=== PATIENT | female | born 1980 | race Caucasian/White ===

== ENCOUNTER 2019-12-20 17:06 | Emergency (ER) | payer BC ==
[~2019-12-20] VITALS: Ht 162.6 cm; Wt 62.6 kg
--- NOTE | 2019-12-20 17:52 | NUR ---
ED Nurse Note: Pt ambulated into Ed frrom home [place] lower right abdominal pain x 1 week. Pt states she noticed the pain when she woke up one week ago. Pt states PCP suggested she visit ED for US and labwork. VSS no s/s of distress noted. Pain 5/10. Awaiting ERMD at bedside
[2019-12-20 18:01] VITALS: BP 117/71
--- NOTE | 2019-12-20 18:20 | NUR ---
ED Nurse Note: ERMD at bedside
--- NOTE | 2019-12-20 18:34 | NUR ---
ED Nurse Note: all blood work drawn and sent to lab
[2019-12-20 18:51] LABS: BASOPHILS % (AUTO) 0.9 % (0.0-2.0); EOSINOPHILS % (AUTO) 1.1 % (0.0-3.0); HEMATOCRIT 38.8 % (37.0-47.0); HEMOGLOBIN 13.6 G/DL (12.0-16.0); LYMPHOCYTES % (AUTO) 24.9 % (20.0-45.0); MEAN CORPUSCULAR VOLUME 88 FL (80-99); MONOCYTES % (AUTO) 6.2 % (1.0-10.0); PLATELET COUNT 310 K/UL (150-450); RED CELL DISTRIBUTION WIDTH 10.9 % (11.6-14.8); WHITE BLOOD COUNT 8.7 K/UL (4.8-10.8)
[2019-12-20 18:52] LABS: APPEARANCE,URINE CLEAR; BILIRUBIN, URINE NEGATIVE (NEGATIVE); COLOR,URINE PALE YELLOW; GLUCOSE, URINE (UA) NEGATIVE (NEGATIVE); KETONES,URINE NEGATIVE (NEGATIVE); LEUKOCYTE ESTERASE ,URINE NEGATIVE (NEGATIVE); NITRITE,URINE NEGATIVE (NEGATIVE); PH,URINE 7 (4.5-8.0); PROTEIN,URINE NEGATIVE (NEGATIVE); UROBILINOGEN,URINE NORMAL MG/DL (0.0-1.0)
[2019-12-20] MEDS ORDERED: Omnipaque-300 100ml vial INJ PRN (19:00)
[2019-12-20 19:03] LABS: ANION GAP 14 mmol/L (5-15); BLOOD UREA NITROGEN 17 mg/dL (7-18); CALCIUM 9.6 MG/DL (8.5-10.1); CARBON DIOXIDE 24 MMOL/L (21-32); CHLORIDE 101 MMOL/L (98-107); CREATININE 0.8 MG/DL (0.55-1.30); POTASSIUM 3.7 MMOL/L (3.5-5.1); SODIUM 139 MMOL/L (136-145)
[2019-12-20 19:07] LABS: ALANINE AMINOTRANSFERASE 25 U/L (12-78); ALBUMIN 4.6 G/DL (3.4-5.0); ALBUMIN/GLOBULIN RATIO 1.2 (1.0-2.7); ALKALINE PHOSPHATASE 54 U/L (46-116); ASPARTATE AMINO TRANSFERASE 14 U/L (15-37); BILIRUBIN,TOTAL 0.3 MG/DL (0.2-1.0)
--- NOTE | 2019-12-20 19:17 | NUR ---
ED Nurse Note: pt being taken to ct in stable condition. VSS, no s/s of distress noted.
--- NOTE | 2019-12-20 19:34 | NUR ---
ED Nurse Note: Pt returned from CT in stable condition. no s/s of distress noted. VSS.
--- NOTE | 2019-12-20 19:53 | NUR ---
ED Nurse Note: ERMD at bedside
[2019-12-20 20:00] VITALS: BP 119/73
--- NOTE | 2019-12-20 20:12 | Diagnostic Imaging Report ---
Clinical Indication: Right lower abdominal pain for one week Technique: No oral contrast utilized, per emergency room physician request IV administration nonionic contrast. Venous phase spiral acquisition obtained through the abdomen and pelvis. Multiplanar reconstructions were generated. Total dose length product 250 mGycm. CTDIvol(s) 4 mGy. Dose reduction achieved using automated exposure control Comparison: none Findings: There is trace free pelvic cul-de-sac fluid. The appendix is normal. No small bowel distention. No free or loculated intraperitoneal gas. The distal esophagus, stomach, duodenum are unremarkable. The liver, gallbladder, bile ducts, pancreas, spleen, adrenals are all unremarkable. The right kidney demonstrates a punctate upper pole 2 mm calculus. The left kidney demonstrates a questionable punctate lower pole calculus. No ureteral calculi, hydronephrosis, or hydroureter. No pelvic mass or adenopathy there is evidence of a collapsed follicle in the left ovary. No retroperitoneal or mesenteric mass or adenopathy. The included lung bases are clear. The bones are unremarkable. Impression: No acute abnormality. 2 mm nonobstructing right upper pole calculus. Free pelvic fluid, presumably physiologic This agrees with the preliminary interpretation provided overnight by [facility]. The CT scanner at [facility] is accredited by the [employer] and the scans are performed using protocols designed to limit radiation exposure to as low as reasonably achievable to attain images of sufficient resolution adequate for diagnostic evaluation.
--- NOTE | 2019-12-20 20:27 | Emergency Room Report ---
History of Present Illness General Chief Complaint: Abdominal Pain Source: Patient Present Illness HPI Patient states that she has had lower abdominal pain that has migrated over the past week. She states that at one point it was periumbilical and now it is mostly in her right lower quadrant. She denies dysuria or hematuria. She denies fever or chills. She denies nausea or vomiting. She has had a normal appetite. She was seen by her primary care physician who was concerned she may have appendicitis and that primary care physician sent her here to the emergency department. She denies cough or congestion. She denies chest pain or shortness of breath. She denies weakness. She denies tingling or numbness. She has no other complaints. COVID-19 risk:Travel to affect: No Has patient experienced sims: No Allergies: Coded Allergies: PENICILLINS (Verified Allergy, Mild, stomach pain diarrhea, 12/20/19) Patient History Past Medical History: none Past Surgical History: none Social History: Denies: smoking, alcohol use, drug use Last Menstrual Period: 11/29/2019 Now: No : 2 Para: 2 Reviewed Nursing Documentation: PMH: Agreed; PSxH: Agreed Nursing Documentation-PMH Past Medical History: No Stated History Review of Systems All Other Systems: negative except mentioned in HPI Physical Exam Vital Signs Date Time Temp Pulse Resp B/P (MAP) Pulse Ox O2 Delivery O2 Flow Rate FiO2 12/20/19 17:52 98.4 78 16 117/71 (86) 98 Room Air Sp02 EP Interpretation: reviewed, normal General Appearance: no apparent distress, alert, GCS 15, non-toxic Head: normocephalic, atraumatic Eyes: bilateral eye normal inspection, bilateral eye PERRL ENT: hearing grossly normal, normal pharynx, no angioedema, normal voice Neck: full range of motion, supple/symm/no masses Respiratory: chest non-tender, lungs clear, normal breath sounds, no respiratory distress, no retraction, no accessory muscle use, speaking full sentences Cardiovascular #1: regular rate, rhythm, no edema Gastrointestinal: normal bowel sounds, soft, non-distended, no guarding, no rebound, tenderness - TTP in the RLQ Rectal: deferred Musculoskeletal: back normal, normal range of motion, non-tender Neurologic: alert, motor strength/tone normal, oriented x3, sensory intact, responsive, speech normal Psychiatric: judgement/insight normal, memory normal, mood/affect normal, no suicidal/homicidal ideation Skin: no rash, normal color Medical Decision Making Diagnostic Impression: Primary Impression: Abdominal pain ER Course This patient who presented with abdominal pain that was localized to her right lower quadrant after further starting in her periumbilical region. She had no other signs or symptoms of appendicitis, however, given the localization of her pain, I did obtain a CT of the abdomen and pelvis. This was negative for appendicitis. Overall the CT was noncontributory. The patient's laboratory work-up was also unremarkable to include CBC, CMP and urinalysis. Overall, the patient's evaluation was benign. At this time I did not identify an emergency medical condition. The patient is given close return precautions and follow-up instructions. Laboratory Tests Test 12/20/19 18:31 White Blood Count 8.7 K/UL (4.8-10.8) Red Blood Count 4.40 M/UL (4.20-5.40) Hemoglobin 13.6 G/DL (12.0-16.0) Hematocrit 38.8 % (37.0-47.0) Mean Corpuscular Volume 88 FL (80-99) Mean Corpuscular Hemoglobin 30.9 PG (27.0-31.0) Mean Corpuscular Hemoglobin Concent 35.0 G/DL (32.0-36.0) Red Cell Distribution Width 10.9 % (11.6-14.8) L Platelet Count 310 K/UL (150-450) Mean Platelet Volume 5.8 FL (6.5-10.1) L Neutrophils (%) (Auto) 67.0 % (45.0-75.0) Lymphocytes (%) (Auto) 24.9 % (20.0-45.0) Monocytes (%) (Auto) 6.2 % (1.0-10.0) Eosinophils (%) (Auto) 1.1 % (0.0-3.0) Basophils (%) (Auto) 0.9 % (0.0-2.0) Urine Color Pale yellow Urine Appearance Clear Urine pH 7 (4.5-8.0) Urine Specific [place] 1.005 (1.005-1.035) Urine Protein Negative (NEGATIVE) Urine Glucose (UA) Negative (NEGATIVE) Urine Ketones Negative (NEGATIVE) Urine Blood Negative (NEGATIVE) Urine Nitrite Negative (NEGATIVE) Urine Bilirubin Negative (NEGATIVE) Urine Urobilinogen Normal MG/DL (0.0-1.0) Urine Leukocyte Esterase Negative (NEGATIVE) Urine HCG, Qualitative Negative (NEGATIVE) Sodium Level 139 MMOL/L (136-145) Potassium Level 3.7 MMOL/L (3.5-5.1) Chloride Level 101 MMOL/L (98-107) Carbon Dioxide Level 24 MMOL/L (21-32) Anion Gap 14 mmol/L (5-15) Blood Urea Nitrogen 17 mg/dL (7-18) Creatinine 0.8 MG/DL (0.55-1.30) Estimate Glomerular Filtration Rate > 60 mL/min (>60) Glucose Level 94 MG/DL (74-106) Calcium Level 9.6 MG/DL (8.5-10.1) Total Bilirubin 0.3 MG/DL (0.2-1.0) Aspartate Amino Transferase (AST) 14 U/L (15-37) L Alanine Aminotransferase (ALT) 25 U/L (12-78) Alkaline Phosphatase 54 U/L (46-116) Total Protein 8.4 G/DL (6.4-8.2) H Albumin 4.6 G/DL (3.4-5.0) Globulin 3.8 g/dL Albumin/Globulin Ratio 1.2 (1.0-2.7) CT/MRI/US Diagnostic Results CT/MRI/US Diagnostic Results : Imaging Test Ordered: CT abd/pelvis Impression CT ABDOMEN + PELVIS With Contrast: Lower thorax is unremarkable. Liver, gallbladder, spleen, pancreas and adrenal glands are unremarkable. Nonobstructing calculus within the right kidney. Otherwise the kidneys, ureters and urinary bladder unremarkable. Uterus is unremarkable. Probable involuting follicle within the left ovary. There have trace free fluid the pelvis, likely physiologic. Appendix is unremarkable. Bowel is unremarkable. No acute osseous abnormality. Last Vital Signs Date Time Temp Pulse Resp B/P (MAP) Pulse Ox O2 Delivery O2 Flow Rate FiO2 12/20/19 20:00 98.4 73 16 119/73 98 Room Air Status: improved Disposition: HOME, SELF-CARE Condition: Improved Patient Instructions: Abdominal Pain, Adult Sadia Parish DO Dec 20, 2019 20:27
[2019-12-20 20:40] VITALS: BP 116/70
--- NOTE | 2019-12-20 20:40 | NUR ---
ER DISCHARGE NOTE: Patient is cleared to be discharged home per ERMD, pt is aox4, on room air, with stable vital signs. pt was given dc and prescription instructions, pt was able to verbalize understanding, pt id band and iv site removed without complications. pt is able to ambulate with steady gait. pt took all belongings.
== END 2019-12-20 20:40 | disposition home or self-care (01) ==
LOC: EMR 20:40
DX: R10.30 Lower abdominal pain, unspecified (principal); Z88.0 Allergy status to penicillin; N20.0 Calculus of kidney
CPT/HCPCS: 36415; 74177; 80053; 81003; 81025; 85025; 99284; Q9967